=== PATIENT | female | born 1990 | race Caucasian/White ===

== ENCOUNTER 2017-02-04 20:52 | Emergency (ER) | payer MEDICAID ==
[2017-02-04 22:08] VITALS: BP 160/89
== END 2017-02-04 22:08 | disposition home or self-care (01) ==
LOC: ED 20:52
DX: N39.0 Urinary tract infection, site not specified (principal); R05 Cough; Z88.2 Allergy status to sulfonamides

== ENCOUNTER 2017-11-21 08:28 | Emergency (ER) | payer OTHER ==
[~2017-11-21] VITALS: Ht 154.9 cm; Wt 107.0 kg
[2017-11-21 08:31] VITALS: Ht 154.9 cm; Wt 107.0 kg
[2017-11-21 10:17] LABS: BASOPHIL % 0.3 % (0-2); PLATELET COUNT 274 x10^3mcL (130-400); RED CELL DISTRIBUTION WIDTH 12.4 % (11.5-14.5)
[2017-11-21 10:18] LABS: CALCIUM 8.2 mg/dL (8.5-10.1); CARBON DIOXIDE 27.9 mmol/L (21-32); CHLORIDE SERUM 105 mmol/L (98-107); CREATININE SERUM 0.6 mg/dL (0.6-1.0); GFR1 > 60 mL/min; GLUCOSE SERUM 96 mg/dL (74-106); POTASSIUM SERUM 4.2 mmol/L (3.5-5.1); SODIUM SERUM 141 mmol/L (136-145)
[2017-11-21 10:23] LABS: ALBUMIN 3.4 g/dL (3.4-5.0); ALKALINE PHOSPHATASE 80 U/L (46-116); ALT/SGPT 36 U/L (14-59); AMYLASE 52 U/L (25-115); AST/SGOT 16 U/L (15-37); BILIRUBIN TOTAL 0.3 mg/dL (0.20-1.00); LIPASE 131 IU/L (73-393); TOTAL PROTEIN, SERUM 7.3 g/dL (6.4-8.2)
[2017-11-21 10:44] LABS: UA SPECIFIC GRAVITY 1.015 (1.005-1.035)
[2017-11-21 10:45] LABS: microscopic required? YES; urine erythrocyte TRACE (NEGATIVE)
[2017-11-21 11:35] VITALS: BP 129/78
== END 2017-11-21 11:36 | disposition home or self-care (01) ==
LOC: ED 08:28
PROVIDERS: Emergency Medicine
DX: N39.0 Urinary tract infection, site not specified (principal); N20.1 Calculus of ureter; Z87.442 Personal history of urinary calculi; Z88.2 Allergy status to sulfonamides
CPT/HCPCS: J1885; J7030

== ENCOUNTER 2017-12-25 17:36 | Emergency (ER) | payer OTHER ==
[~2017-12-25] VITALS: Ht 154.9 cm; Wt 107.0 kg
[2017-12-25 17:39] VITALS: Ht 154.9 cm; Wt 107.0 kg
[2017-12-25 20:34] VITALS: BP 137/81
== END 2017-12-25 20:34 | disposition home or self-care (01) ==
LOC: ED 17:36
DX: J06.9 Acute upper respiratory infection, unspecified (principal); J18.1 Lobar pneumonia, unspecified organism; Z88.2 Allergy status to sulfonamides

== ENCOUNTER 2018-02-02 19:51 | Emergency (ER) | payer OTHER ==
[~2018-02-02] VITALS: Ht 162.6 cm; Wt 93.0 kg
[2018-02-02 20:28] VITALS: Ht 162.6 cm; Wt 93.0 kg
[2018-02-02 21:40] LABS: BASOPHIL % 0.2 % (0-2); PLATELET COUNT 289 x10^3mcL (130-400); RED CELL DISTRIBUTION WIDTH 12.4 % (11.5-14.5)
[2018-02-02 21:50] LABS: CALCIUM 8.6 mg/dL (8.5-10.1); CARBON DIOXIDE 27.2 mmol/L (21-32); CHLORIDE SERUM 105 mmol/L (98-107); CREATININE SERUM 0.5 mg/dL (0.6-1.0); GFR1 > 60 mL/min; GLUCOSE SERUM 96 mg/dL (74-106); POTASSIUM SERUM 3.5 mmol/L (3.5-5.1); SODIUM SERUM 142 mmol/L (136-145)
[2018-02-02 21:54] LABS: ALBUMIN 3.8 g/dL (3.4-5.0); ALKALINE PHOSPHATASE 80 U/L (46-116); ALT/SGPT 25 U/L (14-59); AMYLASE 54 U/L (25-115); AST/SGOT 16 U/L (15-37); BILIRUBIN TOTAL 0.24 mg/dL (0.20-1.00); CHOLESTEROL 125 mg/dL (<200); HDL CHOLESTEROL 43 mg/dL (40-60); LIPASE 111 IU/L (73-393); TOTAL PROTEIN, SERUM 7.7 g/dL (6.4-8.2)
[2018-02-02 22:12] LABS: microscopic required? YES; urine erythrocyte TRACE (NEGATIVE)
[2018-02-02 22:24] LABS: AMPHETAMINE QUAL UR NONE DETECTED (NEG <=1000)
[2018-02-02 23:29] VITALS: BP 134/78
== END 2018-02-02 23:29 | disposition home or self-care (01) ==
LOC: ED 19:51
PROVIDERS: Emergency Medicine
DX: K80.50 Calculus of bile duct without cholangitis or cholecystitis without obstruction (principal); K80.20 Calculus of gallbladder without cholecystitis without obstruction; E66.01 Morbid (severe) obesity due to excess calories; Z88.2 Allergy status to sulfonamides
CPT/HCPCS: 83880; J1885; J7030; Q0092